=== PATIENT | male | born 1945 | race Two or more races ===

== ENCOUNTER → 2022-06-19 | Outpatient (CLI) | payer OTHER ==
[2022-06-19 08:10] LABS: Basophils # (auto) 0.1 10 ^3/uL (0-0.2); Basophils % (auto) 0.8 % (0.0-2.0); Eosinophils # (auto) 0.4 10 ^3/uL (0-0.8); Eosinophils % (auto) 5.9 % (0.0-7.0); Hematocrit 46.3 % (41.0-53.0); Hemoglobin 15.8 g/dL (13.5-17.5); Lymphocytes # (auto) 1.9 10 ^3/uL (0.4-5.4); Lymphocytes % (auto) 29.1 % (10.0-50.0); Mean Corpuscular Hemoglobin 32.2 pg (28.0-32.0); Mean Corpuscular Hgb Conc. 34.1 g/dL (32.0-36.0); Mean Corpuscular Volume 94.5 fL (80.0-100.0); Monocytes # (auto) 0.5 10 ^3/uL (0-1.3); Monocytes % (auto) 8.1 % (0.0-12.0); Neutrophils # (auto) 3.7 10 ^3/uL (1.6-8.6); Neutrophils % (auto) 56.1 % (37.0-80.0); Nucleated Red Blood Cells % 0.1 %; White Blood Cell 6.5 10^3/uL (4.4-10.8)
[2022-06-19 08:21] LABS: Urine Bacteria NONE SEEN /hpf (None Seen); Urine Blood Negative /uL (Negative); Urine Specific Gravity 1.022 (1.001-1.035); Urine WBC 1 /hpf (0 - 3)
[2022-06-19 08:53] LABS: Albumin 3.9 g/dL (3.4-5.0); Calcium 8.8 mg/dL (8.5-10.1); Magnesium 2.4 mg/dL (1.6-2.6); Potassium 4.5 mmol/L (3.5-5.1)
[2022-06-19 09:05] LABS: BUN/Creatinine Ratio 17.2 (10.0-20.0); Bilirubin, Total 0.8 mg/dL (0.2-1.0); Total Protein 7.3 g/dL (6.4-8.2); Uric Acid 5.7 mg/dL (3.5-7.2)
== END | disposition home or self-care (01) ==
LOC: LAB 07:51
PROVIDERS: ATTEND Internal Medicine
DX: R79.89 Other specified abnormal findings of blood chemistry (principal); E78.41 Elevated Lipoprotein(a); R68.89 Other general symptoms and signs; R73.09 Other abnormal glucose; E61.2 Magnesium deficiency; R94.6 Abnormal results of thyroid function studies; R82.991 Hypocitraturia; E55.9 Vitamin D deficiency, unspecified; R82.79 Other abnormal findings on microbiological examination of urine; D51.9 Vitamin B12 deficiency anemia, unspecified; R82.90 Unspecified abnormal findings in urine
CPT/HCPCS: 36415; 80053; 80061; 81001; 82306; 82607; 83036; 83735; 84443; 84550; 85025; 87086

== ENCOUNTER → 2022-10-09 | Outpatient (CLI) | payer OTHER ==
[2022-10-09 09:33] LABS: Urine Bacteria NONE SEEN /hpf (None Seen); Urine Blood Negative /uL (Negative); Urine Clarity Clear (Clear); Urine Color Yellow (Yellow); Urine Protein, UAD Negative (Negative); Urine Specific Gravity 1.022 (1.001-1.035); Urine Urobilinogen Normal (Negative); Urine WBC <1 /hpf (0 - 3)
[2022-10-09 09:38] LABS: Basophils # (auto) 0 10 ^3/uL (0-0.2); Basophils % (auto) 0.7 % (0.0-2.0); Eosinophils # (auto) 0.4 10 ^3/uL (0-0.8); Hematocrit 46.4 % (41.0-53.0); Hemoglobin 15.5 g/dL (13.5-17.5); Lymphocytes # (auto) 1.5 10 ^3/uL (0.4-5.4); Lymphocytes % (auto) 28.9 % (10.0-50.0); Mean Corpuscular Hemoglobin 31.6 pg (28.0-32.0); Mean Corpuscular Hgb Conc. 33.3 g/dL (32.0-36.0); Mean Corpuscular Volume 94.9 fL (80.0-100.0); Monocytes # (auto) 0.5 10 ^3/uL (0-1.3); Monocytes % (auto) 9.3 % (0.0-12.0); Neutrophils # (auto) 2.8 10 ^3/uL (1.6-8.6); Neutrophils % (auto) 53.1 % (37.0-80.0); Nucleated Red Blood Cells % 0.3 %; Red Blood Cells 4.89 10^6/uL (4.5-5.90); Red Cell Distribution Width 13.2 % (11.8-14.3); White Blood Cell 5.4 10^3/uL (4.4-10.8)
[2022-10-09 10:06] LABS: Alanine Aminotransferase 21 U/L (7-40); Albumin 4.4 g/dL (3.2-4.8); Alkaline Phosphatase 74 U/L (46-116); Anion Gap 4.9 (5-15); Aspartate Aminotransferase 12 U/L (13-40); BUN/Creatinine Ratio 19.4 (10.0-20.0); Blood Urea Nitrogen 21 mg/dL (9-23); Calcium 9.3 mg/dL (8.5-10.1); Carbon Dioxide 29.1 mmol/L (20-30); Chloride 109 mmol/L (98-107); Cholesterol 172 mg/dL (< 200); Glucose 98 mg/dL (74-106); HDL Cholesterol 48 mg/dL (40-59); LDL Cholesterol 113 mg/dL (< 100); Magnesium 2.1 mg/dL (1.6-2.6); Potassium 4.8 mmol/L (3.5-5.1); Sodium 143 mmol/L (136-145); Triglycerides 121 mg/dL (< 150)
[2022-10-09 10:07] LABS: Total Protein 6.9 g/dL (5.7-8.2)
[2022-10-09 10:10] LABS: Folate (Folic Acid) 15.92 ng/mL (>5.38)
[2022-10-09 11:39] LABS: Uric Acid 6.3 mg/dL (3.7-9.2)
== END | disposition home or self-care (01) ==
LOC: LAB 08:50
PROVIDERS: ATTEND Internal Medicine
DX: E61.2 Magnesium deficiency (principal); D51.9 Vitamin B12 deficiency anemia, unspecified; R94.6 Abnormal results of thyroid function studies; E55.9 Vitamin D deficiency, unspecified; R82.90 Unspecified abnormal findings in urine; R68.89 Other general symptoms and signs; R73.09 Other abnormal glucose; E78.41 Elevated Lipoprotein(a)
CPT/HCPCS: 36415; 80053; 80061; 81001; 82306; 82607; 82746; 83036; 83735; 84443; 84550; 85025; 87086

== ENCOUNTER → 2023-01-02 | Outpatient (CLI) | payer OTHER ==
[2023-01-02 09:23] LABS: Urine WBC None Seen /hpf (0 - 3)
[2023-01-02 09:34] LABS: Basophils # (auto) 0 10 ^3/uL (0-0.2); Basophils % (auto) 0.5 % (0.0-2.0); Eosinophils # (auto) 0.4 10 ^3/uL (0-0.8); Eosinophils % (auto) 7.4 % (0.0-7.0); Hematocrit 47.3 % (41.0-53.0); Hemoglobin 15.9 g/dL (13.5-17.5); Lymphocytes # (auto) 1.6 10 ^3/uL (0.4-5.4); Lymphocytes % (auto) 27.4 % (10.0-50.0); Mean Corpuscular Hemoglobin 31.8 pg (28.0-32.0); Mean Corpuscular Hgb Conc. 33.7 g/dL (32.0-36.0); Mean Corpuscular Volume 94.4 fL (80.0-100.0); Monocytes # (auto) 0.4 10 ^3/uL (0-1.3); Neutrophils # (auto) 3.4 10 ^3/uL (1.6-8.6); Neutrophils % (auto) 57.7 % (37.0-80.0); Nucleated Red Blood Cells % 0.1 %; Red Blood Cells 5.01 10^6/uL (4.5-5.90); Red Cell Distribution Width 12.8 % (11.8-14.3); White Blood Cell 5.8 10^3/uL (4.4-10.8)
[2023-01-02 09:39] LABS: Urine Bacteria NONE SEEN /hpf (None Seen); Urine Blood Negative /uL (Negative); Urine Clarity Clear (Clear); Urine Color Yellow (Yellow); Urine Protein, UAD Negative (Negative); Urine Specific Gravity 1.014 (1.001-1.035); Urine Urobilinogen Normal (Negative); Urine pH 6.5 (5.0-8.0)
[2023-01-02 10:14] LABS: Alanine Aminotransferase 18 U/L (7-40); Albumin 4.5 g/dL (3.2-4.8); Alkaline Phosphatase 70 U/L (46-116); Anion Gap 4 (5-15); Aspartate Aminotransferase 21 U/L (13-40); BUN/Creatinine Ratio 9.8 (10.0-20.0); Blood Urea Nitrogen 12 mg/dL (9-23); Calcium 9.1 mg/dL (8.5-10.1); Carbon Dioxide 29 mmol/L (20-30); Chloride 107 mmol/L (98-107); Cholesterol 145 mg/dL (< 200); Glucose 92 mg/dL (74-106); HDL Cholesterol 43 mg/dL (40-59); LDL Cholesterol 88 mg/dL (< 100); Potassium 4.4 mmol/L (3.5-5.1); Sodium 140 mmol/L (136-145); Total Protein 7.1 g/dL (5.7-8.2); Triglycerides 118 mg/dL (< 150)
[2023-01-02 10:37] LABS: Folate (Folic Acid) 20.07 ng/mL (>5.38)
[2023-01-02 10:50] LABS: Uric Acid 6.3 mg/dL (3.7-9.2)
[2023-01-02 10:51] LABS: Magnesium 2.1 mg/dL (1.6-2.6)
== END | disposition home or self-care (01) ==
LOC: LAB 09:08
PROVIDERS: ATTEND Internal Medicine
DX: E61.2 Magnesium deficiency (principal); E79.0 Hyperuricemia without signs of inflammatory arthritis and tophaceous disease; R94.6 Abnormal results of thyroid function studies; R82.998 Other abnormal findings in urine; E55.9 Vitamin D deficiency, unspecified; R82.79 Other abnormal findings on microbiological examination of urine; D51.9 Vitamin B12 deficiency anemia, unspecified; E78.49 Other hyperlipidemia; R68.89 Other general symptoms and signs; R73.09 Other abnormal glucose
CPT/HCPCS: 36415; 80053; 80061; 81001; 82306; 82607; 82746; 83036; 83735; 84443; 84550; 85025; 87086

== ENCOUNTER → 2023-04-14 | Outpatient (CLI) | payer OTHER ==
[2023-04-14 09:26] LABS: Basophils # (auto) 0.1 10 ^3/uL (0-0.2); Eosinophils # (auto) 0.5 10 ^3/uL (0-0.8); Eosinophils % (auto) 7.3 % (0.0-7.0); Hematocrit 46.6 % (41.0-53.0); Hemoglobin 15.4 g/dL (13.5-17.5); Lymphocytes # (auto) 2.2 10 ^3/uL (0.4-5.4); Lymphocytes % (auto) 32.5 % (10.0-50.0); Mean Corpuscular Hemoglobin 31.2 pg (28.0-32.0); Mean Corpuscular Hgb Conc. 33.2 g/dL (32.0-36.0); Mean Corpuscular Volume 94.2 fL (80.0-100.0); Monocytes # (auto) 0.6 10 ^3/uL (0-1.3); Monocytes % (auto) 8.7 % (0.0-12.0); Neutrophils # (auto) 3.4 10 ^3/uL (1.6-8.6); Neutrophils % (auto) 50.5 % (37.0-80.0); Nucleated Red Blood Cells % 0.1 %; Red Blood Cells 4.95 10^6/uL (4.5-5.90); Red Cell Distribution Width 13.2 % (11.8-14.3); White Blood Cell 6.8 10^3/uL (4.4-10.8)
[2023-04-14 09:44] LABS: Urine Bacteria FEW /hpf (None Seen); Urine Blood Negative /uL (Negative); Urine Clarity Clear (Clear); Urine Color Yellow (Yellow); Urine Protein, UAD Negative (Negative); Urine Specific Gravity 1.018 (1.001-1.035); Urine Urobilinogen Normal (Negative); Urine WBC <1 /hpf (0 - 3)
[2023-04-14 10:09] LABS: Alanine Aminotransferase 13 U/L (7-40); Albumin 4.3 g/dL (3.2-4.8); Alkaline Phosphatase 73 U/L (46-116); Anion Gap 4 (5-15); Aspartate Aminotransferase 18 U/L (13-40); BUN/Creatinine Ratio 12.2 (10.0-20.0); Blood Urea Nitrogen 14 mg/dL (9-23); Calcium 9.4 mg/dL (8.5-10.1); Carbon Dioxide 29 mmol/L (20-30); Chloride 108 mmol/L (98-107); Cholesterol 191 mg/dL (< 200); Glucose 88 mg/dL (74-106); HDL Cholesterol 41 mg/dL (40-59); LDL Cholesterol 138 mg/dL (< 100); Potassium 4.3 mmol/L (3.5-5.1); Sodium 141 mmol/L (136-145); Triglycerides 132 mg/dL (< 150)
[2023-04-14 10:17] LABS: Folate (Folic Acid) 19.45 ng/mL (>5.38)
[2023-04-14 10:45] LABS: Uric Acid 6.3 mg/dL (3.7-9.2)
[2023-04-14 10:46] LABS: Magnesium 2.1 mg/dL (1.6-2.6)
== END | disposition home or self-care (01) ==
LOC: LAB 08:59
PROVIDERS: ATTEND Internal Medicine
DX: E55.9 Vitamin D deficiency, unspecified (principal); D51.9 Vitamin B12 deficiency anemia, unspecified; R82.90 Unspecified abnormal findings in urine; R79.89 Other specified abnormal findings of blood chemistry; R68.89 Other general symptoms and signs; R73.09 Other abnormal glucose; E61.2 Magnesium deficiency; R94.6 Abnormal results of thyroid function studies
CPT/HCPCS: 36415; 80053; 80061; 81001; 82306; 82607; 82746; 83036; 83735; 84443; 84550; 85025; 87086

== ENCOUNTER → 2023-07-08 | Day surgery (SDC) | payer OTHER ==
[2023-07-02 10:00] LABS: Basophils # (auto) 0 10 ^3/uL (0-0.2); Basophils % (auto) 0.6 % (0.0-2.0); Eosinophils # (auto) 0.3 10 ^3/uL (0-0.8); Eosinophils % (auto) 5.2 % (0.0-7.0); Hematocrit 46.5 % (41.0-53.0); Hemoglobin 15.5 g/dL (13.5-17.5); Lymphocytes # (auto) 1.9 10 ^3/uL (0.4-5.4); Lymphocytes % (auto) 31.2 % (10.0-50.0); Mean Corpuscular Hemoglobin 31.5 pg (28.0-32.0); Mean Corpuscular Hgb Conc. 33.3 g/dL (32.0-36.0); Mean Corpuscular Volume 94.8 fL (80.0-100.0); Monocytes # (auto) 0.5 10 ^3/uL (0-1.3); Monocytes % (auto) 8.8 % (0.0-12.0); Neutrophils # (auto) 3.3 10 ^3/uL (1.6-8.6); Neutrophils % (auto) 54.2 % (37.0-80.0); Nucleated Red Blood Cells % 0.1 %; Red Blood Cells 4.91 10^6/uL (4.5-5.90); Red Cell Distribution Width 12.8 % (11.8-14.3); White Blood Cell 6.1 10^3/uL (4.4-10.8)
[2023-07-02 10:18] LABS: INR 1.02 (0.9-1.15); Partial Thromboplastin Time 28.1 SEC (24.5-34.5); Prothrombin Time 10.8 sec (9.3-11.8)
[2023-07-02 10:28] LABS: Alanine Aminotransferase 22 U/L (7-40); Albumin 4.6 g/dL (3.2-4.8); Alkaline Phosphatase 76 U/L (46-116); Anion Gap 3 (5-15); Aspartate Aminotransferase 17 U/L (13-40); BUN/Creatinine Ratio 14.5 (10.0-20.0); Blood Urea Nitrogen 17 mg/dL (9-23); Calcium 9.8 mg/dL (8.5-10.1); Carbon Dioxide 30 mmol/L (20-30); Chloride 107 mmol/L (98-107); Glucose 91 mg/dL (74-106); Potassium 4.5 mmol/L (3.5-5.1); Sodium 140 mmol/L (136-145); Total Protein 7.2 g/dL (5.7-8.2)
[~2023-07-08] VITALS: Ht 172.7 cm; Wt 88.5 kg
[~2023-07-08] MED LIST: ATOR10TA52 PO; FLUMAZENIL 0.1 MG/ML INJ 10ML MDV IV ONE; NALOXONE HCL 0.4 MG/ML VIAL ONE; PANT40TA2 PO; SODIUM CHLORIDE LOCK 10 ML ONE; SUCR1TAB31 OR; TAMS0.4C36 PO
[2023-07-08 10:25] VITALS: PULSE 65; RESP 16; O2SAT 97
[2023-07-08] MEDS: LIDOCAINE VISCOUS 2% 15ML UD ONE (10:26)
[2023-07-08] MEDS: diphenhdrAMINE HCL 50 MG/1 ML VL ONE (10:31)
[2023-07-08] MEDS: fentaNYL CITRATE 100 MCG/2 ML VL ONE (10:31)
[2023-07-08] MEDS: MIDAZOLAM HCL 5 MG/ML-1ML VIAL ONE (10:31)
[2023-07-08 10:43] VITALS: RESP 16; TEMP 97.5; O2SAT 94
[2023-07-08 11:07] VITALS: BP 115/69; PULSE 59; RESP 16; O2SAT 94
== END | disposition home or self-care (01) ==
LOC: GI 09:09
PROVIDERS: ATTEND Internal Medicine Gastroenterology
DX: K21.00 Gastro-esophageal reflux disease with esophagitis, without bleeding (principal); K44.9 Diaphragmatic hernia without obstruction or gangrene; K29.50 Unspecified chronic gastritis without bleeding; K29.80 Duodenitis without bleeding; M19.90 Unspecified osteoarthritis, unspecified site; Z79.899 Other long term (current) drug therapy; Z98.890 Other specified postprocedural states; Z98.41 Cataract extraction status, right eye; Z98.42 Cataract extraction status, left eye
CPT/HCPCS: 36415; 43239; 80053; 85025; 85610; 85730; 88305; 88312; 88342; J1200; J2250; J3010; J7030

== ENCOUNTER → 2023-08-14 | Outpatient (CLI) | payer OTHER ==
[~2023-08-14] MED LIST changes: -FLUMAZENIL 0.1 MG/ML INJ 10ML MDV IV ONE; -NALOXONE HCL 0.4 MG/ML VIAL ONE; -SODIUM CHLORIDE LOCK 10 ML ONE
[2023-08-14 07:50] LABS: Urine Bacteria None Seen /hpf (None Seen)
[2023-08-14 08:09] LABS: Basophils # (auto) 0 10 ^3/uL (0-0.2); Basophils % (auto) 0.6 % (0.0-2.0); Eosinophils # (auto) 0.4 10 ^3/uL (0-0.8); Eosinophils % (auto) 6.7 % (0.0-7.0); Hematocrit 44.5 % (41.0-53.0); Hemoglobin 15.1 g/dL (13.5-17.5); Lymphocytes # (auto) 1.8 10 ^3/uL (0.4-5.4); Lymphocytes % (auto) 29.7 % (10.0-50.0); Mean Corpuscular Hemoglobin 31.7 pg (28.0-32.0); Mean Corpuscular Hgb Conc. 33.8 g/dL (32.0-36.0); Mean Corpuscular Volume 93.7 fL (80.0-100.0); Monocytes # (auto) 0.5 10 ^3/uL (0-1.3); Monocytes % (auto) 7.8 % (0.0-12.0); Neutrophils # (auto) 3.3 10 ^3/uL (1.6-8.6); Neutrophils % (auto) 55.2 % (37.0-80.0); Nucleated Red Blood Cells % 0.1 %; Red Blood Cells 4.75 10^6/uL (4.5-5.90); Red Cell Distribution Width 13.2 % (11.8-14.3); Urine Blood Negative /uL (Negative); Urine Clarity Clear (Clear); Urine Color Light-Yellow (Yellow); Urine Protein, UAD Negative (Negative); Urine Urobilinogen Normal (Negative); Urine WBC <1 /hpf (0 - 3); White Blood Cell 6.1 10^3/uL (4.4-10.8)
[2023-08-14 08:21] LABS: Alanine Aminotransferase 29 U/L (7-40); Albumin 4.2 g/dL (3.2-4.8); Alkaline Phosphatase 71 U/L (46-116); Anion Gap 4 (5-15); Aspartate Aminotransferase 19 U/L (13-40); Blood Urea Nitrogen 14 mg/dL (9-23); Calcium 9.4 mg/dL (8.5-10.1); Carbon Dioxide 28 mmol/L (20-30); Chloride 109 mmol/L (98-107); Glucose 101 mg/dL (74-106); LDL Cholesterol 95 mg/dL (< 100); Magnesium 1.9 mg/dL (1.6-2.6); Potassium 4.6 mmol/L (3.5-5.1); Sodium 141 mmol/L (136-145); Triglycerides 133 mg/dL (< 150)
[2023-08-14 08:22] LABS: Cholesterol 154 mg/dL (< 200); HDL Cholesterol 47 mg/dL (40-59); Total Protein 6.5 g/dL (5.7-8.2)
[2023-08-14 09:15] LABS: Folate (Folic Acid) 19.43 ng/mL (>5.38)
[2023-08-14 11:00] LABS: Uric Acid 5.6 mg/dL (3.7-9.2)
== END | disposition home or self-care (01) ==
LOC: LAB 07:40
PROVIDERS: ATTEND Internal Medicine
DX: E79.0 Hyperuricemia without signs of inflammatory arthritis and tophaceous disease (principal); E55.9 Vitamin D deficiency, unspecified; R82.79 Other abnormal findings on microbiological examination of urine; R82.90 Unspecified abnormal findings in urine; Z68.30 Body mass index [BMI] 30.0-30.9, adult; R73.03 Prediabetes; D51.9 Vitamin B12 deficiency anemia, unspecified; R94.6 Abnormal results of thyroid function studies; E78.5 Hyperlipidemia, unspecified; R68.89 Other general symptoms and signs; R73.09 Other abnormal glucose; E78.49 Other hyperlipidemia; E61.2 Magnesium deficiency
CPT/HCPCS: 36415; 80053; 80061; 81001; 82306; 82607; 82746; 83036; 83735; 84443; 84550; 85025; 87086

== ENCOUNTER → 2023-11-17 | Outpatient (CLI) | payer OTHER ==
[~2023-11-17] MED LIST changes: -TAMS0.4C36 PO; +TAMS0.4C39 PO
[2023-11-17 08:21] LABS: Urine Bacteria None Seen /hpf (None Seen)
[2023-11-17 08:58] LABS: Urine Blood Negative /uL (Negative); Urine Clarity Clear (Clear); Urine Color Light-Yellow (Yellow); Urine Mucus FEW (None Seen); Urine Protein, UAD Negative (Negative); Urine Specific Gravity 1.017 (1.001-1.035); Urine Urobilinogen Normal (Negative); Urine WBC 1 /hpf (0 - 3); Urine pH 5.5 (5.0-9.0)
[2023-11-17 09:02] LABS: Basophils # (auto) 0 10 ^3/uL (0-0.2); Basophils % (auto) 0.6 % (0.0-2.0); Eosinophils # (auto) 0.4 10 ^3/uL (0-0.8); Eosinophils % (auto) 5.5 % (0.0-7.0); Hematocrit 46.8 % (41.0-53.0); Hemoglobin 15.9 g/dL (13.5-17.5); Lymphocytes # (auto) 1.9 10 ^3/uL (0.4-5.4); Lymphocytes % (auto) 28.1 % (10.0-50.0); Mean Corpuscular Hemoglobin 32.6 pg (28.0-32.0); Mean Corpuscular Volume 95.9 fL (80.0-100.0); Monocytes # (auto) 0.5 10 ^3/uL (0-1.3); Neutrophils # (auto) 3.9 10 ^3/uL (1.6-8.6); Neutrophils % (auto) 57.8 % (37.0-80.0); Nucleated Red Blood Cells % 0.1 %; Platelet Count (auto) 219 10^3/uL (140-450); Red Blood Cells 4.88 10^6/uL (4.5-5.90); Red Cell Distribution Width 13.6 % (11.8-14.3); White Blood Cell 6.8 10^3/uL (4.4-10.8)
[2023-11-17 09:14] LABS: Alanine Aminotransferase 12 U/L (7-40); Albumin 4.5 g/dL (3.2-4.8); Alkaline Phosphatase 76 U/L (46-116); Anion Gap 6 (5-15); Aspartate Aminotransferase 14 U/L (13-40); BUN/Creatinine Ratio 13.1 (10.0-20.0); Blood Urea Nitrogen 16 mg/dL (9-23); Calcium 9.5 mg/dL (8.7-10.4); Carbon Dioxide 27 mmol/L (20-31); Chloride 108 mmol/L (98-107); Cholesterol 181 mg/dL (< 200); Glucose 89 mg/dL (74-106); HDL Cholesterol 47 mg/dL (40-59); LDL Cholesterol 117 mg/dL (< 100); Magnesium 2.2 mg/dL (1.6-2.6); Potassium 4.5 mmol/L (3.5-5.1); Sodium 141 mmol/L (136-145); Triglycerides 139 mg/dL (< 150)
[2023-11-17 09:15] LABS: Bilirubin, Total 0.9 mg/dL (0.2-1.0)
[2023-11-17 09:32] LABS: Uric Acid 5.9 mg/dL (3.7-9.2)
[2023-11-17 11:25] LABS: Folate (Folic Acid) 18.02 ng/mL (>5.38)
== END | disposition home or self-care (01) ==
LOC: LAB 07:55
PROVIDERS: ATTEND Internal Medicine
DX: E78.5 Hyperlipidemia, unspecified (principal); Z68.30 Body mass index [BMI] 30.0-30.9, adult
CPT/HCPCS: 36415; 80053; 80061; 81001; 82306; 82607; 82746; 83036; 83735; 84443; 84550; 85025; 87086

== ENCOUNTER → 2024-02-12 | Outpatient (CLI) | payer OTHER ==
[2024-02-12 09:19] LABS: Alanine Aminotransferase 28 U/L (7-40); Albumin 4.4 g/dL (3.2-4.8); Alkaline Phosphatase 86 U/L (46-116); Anion Gap 6 (5-15); Aspartate Aminotransferase 24 U/L (13-40); BUN/Creatinine Ratio 13.2 (10.0-20.0); Bilirubin, Total 0.6 mg/dL (0.2-1.0); Blood Urea Nitrogen 15 mg/dL (9-23); Calcium 10.2 mg/dL (8.7-10.4); Carbon Dioxide 29 mmol/L (20-31); Chloride 105 mmol/L (98-107); Cholesterol 162 mg/dL (< 200); Glucose 88 mg/dL (74-106); HDL Cholesterol 49 mg/dL (40-59); LDL Cholesterol 97 mg/dL (< 100); Potassium 4.3 mmol/L (3.5-5.1); Sodium 140 mmol/L (136-145)
[2024-02-12 09:21] LABS: Triglycerides 175 mg/dL (< 150)
== END | disposition home or self-care (01) ==
LOC: LAB 08:04
PROVIDERS: ATTEND Internal Medicine
DX: N40.0 Benign prostatic hyperplasia without lower urinary tract symptoms (principal); K27.9 Peptic ulcer, site unspecified, unspecified as acute or chronic, without hemorrhage or perforation; E61.2 Magnesium deficiency; E55.9 Vitamin D deficiency, unspecified; E79.0 Hyperuricemia without signs of inflammatory arthritis and tophaceous disease; R51.9 Headache, unspecified; E78.5 Hyperlipidemia, unspecified; R94.6 Abnormal results of thyroid function studies; R73.09 Other abnormal glucose; R82.90 Unspecified abnormal findings in urine
CPT/HCPCS: 36415; 80053; 80061; 82306; 87086

== ENCOUNTER → 2024-04-20 | Outpatient (CLI) | payer OTHER ==
[2024-04-21 08:07] LABS: PSA Free 1.25 ng/mL; Prostate Specific Antigen 4.9 ng/mL (0.0-4.0)
== END | disposition home or self-care (01) ==
LOC: LAB 10:28
PROVIDERS: ATTEND Urology
DX: N40.0 Benign prostatic hyperplasia without lower urinary tract symptoms (principal)
CPT/HCPCS: 84153; 84154

== ENCOUNTER 2024-07-21 07:39 | Outpatient (CLI) | payer OTHER ==
[~2024-07-21] VITALS: Ht 172.7 cm; Wt 89.4 kg
--- NOTE | 2024-07-21 10:11 | DVHCARD ---
Cardiology Stress Test [place] Treadmill Stress Test [place] Referring MD: MD Michael Protocol: Mod. naima (with cardiolite) Reason for referral: Other (Procedural cardiovascular examination ) Target heart Rate:@85%: 118 Percent MPHR: 139 METS: 7.0 Resting Heart rate: 54 Resting Blood Pressure: 118/68 Exercise Heart Rate: 126 Exercise Blood Pressure: 154/24 Baseline EKG: Sinus bradycardia with PACs Stress EKG: Sinus tachycardia Functional Capacity: Good Normal Heart Rate Response: Adequate Blood Pressure Response: Hypertensive Clinical response: Non-ischemic Arrhythmia?: No (Excessive artifact throughout exam) Cardiolite Injected?: Yes ST-T Changes: Non/Minimal Probability of Inducible Ische: Perfusion result pending Date of Service: Jul 21, 2024 Billing Provider: [facility] Common Codes: PROCEDURE ONLY Treadmill W/Cardiolite Nuclear: [id number], INTERP, RPT [facility] Jul 21, 2024 10:11
--- NOTE | 2024-07-21 12:55 | DVHSR ---
APPROVED REPORT Exam: Nuclear Stress Test Indication: CARDIAC CLEARANCE BMI: 0 Medical History Medical History: PROSTATE CA, HTN Allergies: No known drug allergies Stress Test Details Stress Test: Exercise stress testing was performed using a modified Harshal protocol. HR Resting HR: 54 bpmMax Heart Rate (APMHR): 139.457962 bpm Max HR Achieved: 126 bpmTarget HR (85% APMHR): 118.327849 bpm % of APMHR: 90.65 Recovery HR: 83 bpm BP Resting BP: 118/68 mmHg Recovery BP: 138/79 mmHg ECG Resting ECG: Sinus Rhythm Clinical Reason for Termination: Completed protocol Exercise duration: 12 min 00 sec Exercise capacity: 7.0 METs Stress ECG Conclusion lvef 60% no severe ischemia noted GI artifact inferior wall noted NM EXAM: Myocardial Perfusion REST/STRESS Imaging Protocol: Rest Tc-99m/Stress Tc-99m 1 day Resting Data Rest SPECT myocardial perfusion imaging was performed in supine position 45 minutes following the int ravenous injection of 10.5 mCi of Tc-99m Sestamibi. Time of rest injection: 08:15 Date: 07/21/2024 Time of rest imagin:00 Date: 07/21/2024 Administration Route: IV Administration Site: Left Hand Exercise Stress At peak stress, the patient was injected intravenously with 33.0mCi of Tc-99m Sestamibi. Time of stress injection: 09:53 Date: 07/21/2024 Time of stress imagin:27 Administration Route: IV Administration Site: Left Arm Heart Rate at time of stress injection: 108 bpm. Patient continued to exercise for 2 minute(s). Gated Stress SPECT was performed 34 minutes after stress injection. The images were gated to evaluate regional wall motion and calculate left ventricular ejection fracti on. Stress only was performed in the Supine position. Nuclear Conclusion Nuclear Findings: negative for ischemia Exercise Capacity: normal lvef 60% no severe ischemia noted GI artifact inferior wall noted
== END 2024-07-21 17:00 | disposition home or self-care (01) ==
LOC: XYW 07:39
PROVIDERS: ATTEND Internal Medicine
DX: Z01.810 Encounter for preprocedural cardiovascular examination (principal); N47.1 Phimosis; I10 Essential (primary) hypertension; K21.9 Gastro-esophageal reflux disease without esophagitis; R97.20 Elevated prostate specific antigen [PSA]
CPT/HCPCS: 78452; 93017; A9500

== ENCOUNTER 2025-02-08 12:32 | Inpatient (IN) | payer OTHER, MEDICAID ==
[~2025-02-08] VITALS: Ht 172.7 cm; Wt 87.4 kg
--- NOTE | 2025-02-08 13:05 | ED.PDOC ---
HPI (NEURO) HPI Comments HPI: A 79 year old male presents to the emergency department for chief complaint of dizziness onset 8 days ago. Pt reports that he fell and passed out on Friday, laying down unconscious for about 1 minute. Pt reports that when he both stands up and eats meals he feels dizzy but denies any symptoms when exercising. In the ED, Pt also reports that his "head is spinning" and feels intermittent chest palpitations when he consumes caffeine. Pt denies any associate symptoms of fever, chills, body aches, nausea, or diarrhea. Pt notes no other symptoms at this time. Initial Vitals BP: 128/81 HR:67 RR:18 O2 Sat: 98 Temp: 98 F Past Medical history: GERD, enlarged prostate, high cholesterol. Past Surgical history: denies. Medications: atorvastatin, omeprazole Social History: Denies smoking, ETOH, and drug use. Allergies: NKDA HPI: Poor Historian. RIVER: DIZZY NORMAL REVIEW OF SYSTEMS: CONSTITUTIONAL: Denies acute: fever, diaphoresis, chills, generalized weakness. HEAD: Denies acute: headache, photophobia Eyes: Denies acute: Double vision, vision loss, eye pain, eye discharge. EARS: Denies acute: tinnitus, hearing loss, ear discharge, ear pain, THROAT: Denies acute: sore throat, swelling, difficulty swallowing , pain with swallowing, change in voice. NECK: Denies acute: neck pain, neck swelling, stiff neck. HEART: Denies acute : chest pain, LUNGS: Denies acute: SOB, wheezing, cough, hemoptysis ABDOMEN: Denies acute: abdominal pain, Nausea, Vomiting, diarrhea, melena , hematemesis, hematochezia SKIN: Denies acute: rash, redness, lesions, itchiness. EXTREMITIES: Denies acute: calf pain, numbness, tingling, weakness, denies pain in extremity. Denies acute: Low back pain. Neuro: Denies acute: focal neurological deficit, motor or sensory focal neurological deficit, tremors, seizure like activity, confusion, change in mental status, loss of bowel or bladder function, cauda equina like symptoms. : Denies acute: dysuria, hematuria, flank pain, increase in urinary frequency. PSYCH: Denies acute: hallucination, suicidal ideation, homicidal ideation. PHYSICAL EXAM: General: ----no---acute distress, awake and alert. Head: normocephalic, atraumatic. No raccoon's eyes, no lucio sign. Neck: supple, trachea is midline, no swelling. Throat: Normal phonation. Eyes:, no erythema, no purulent discharge, no proptosis, no icterus. Heart: regular rate, regular rhythm, no significant murmur appreciated. Lungs: no apparent respiratory distress, Able to speak in full sentences. No wheezing, no rhonchi, no crackles. No stridors Clear to auscultation bilaterally. Abdomen: non tender to palpation, non distended, soft, no guarding, no rebound, + bowel sounds. Neuro: Awake, Alert, oriented to name, self, situation, follows commands GCS=15. Speech is normal. Skin: no petechia, no purpura, no cyanosis, non-pale, not jaundice. Lower extremities: --no - Pitting edema no deformity, no focal swelling, no calf TTP. Makes eye contact. moves all four extremities. Face: no apparent facial droop. Ambulating in the ED independently. ED COURSE: DISCLAIMER: This medical document was created using an electronic medical record system with voice recognition software and computerized dictation system. Although this document has been carefully reviewed, there might still be some phonetic and typographical errors. Occasional wrong-word or "sound-alike" substitutions may have occurred due to the inherent limitations of voice recognition software. These areas are purely typographical due to imperfections of the software programs and do not reflect any compromise in the patient's medical care. Please read the chart carefully and recognize, using context, where these substitutions have occurred. Chief Complaint: Dizziness Time Seen by MD: 12:56 Reviewed Notes: Nurses Notes, Medications, Allergies Information Source: Patient Mode of Arrival: Ambulatory Timing: Days Duration: Since onset Headache Location: Generalized Onset: Other (When standing up) Was a procedure done? Was a procedure done?: No X-Ray, Labs, Meds, VS Vital Signs Date Time Temp Pulse Resp B/P (MAP) Pulse Ox O2 Delivery O2 Flow Rate FiO2 02/08/25 12:47 67 02/08/25 12:36 98.0 77 18 128/81 98 98.0 Lab Test 02/08/25 13:14 Range/Units White Blood Count Pending Red Blood Count Pending Hemoglobin Pending Hematocrit Pending Mean Corpuscular Volume Pending Mean Corpuscular Hemoglobin Pending Mean Corpuscular Hemoglobin Concent Pending Red Cell Distribution Width Pending Platelet Count Pending Mean Platelet Volume Pending Neutrophils (%) (Auto) Pending Lymphocytes (%) (Auto) Pending Monocytes (%) (Auto) Pending Basophils (%) (Auto) Pending Neutrophils # (Auto) Pending Lymphocytes # (Auto) Pending Monocytes # (Auto) Pending Sodium Level Pending Potassium Level Pending Chloride Level Pending Carbon Dioxide Level Pending Anion Gap Pending Blood Urea Nitrogen Pending Creatinine Pending Glomerular Filtration Rate Calc Pending BUN/Creatinine Ratio Pending Serum Glucose Pending Calcium Level Pending Total Bilirubin Pending Aspartate Amino Transferase (AST) Pending Alanine Aminotransferase (ALT) Pending Alkaline Phosphatase Pending Troponin I High Sensitivity Pending Total Protein Pending Albumin Pending [place] [id number] Ph: [phone] DIAGNOSTIC IMAGING Diagnostic Imaging Report : [id number] Signed PATIENT: DOMINGO RIVERCCT: [id number] UNIT: [id number] : 1945 LOC: ER ROOM / BED: / AGE / SEX: 79 / M ADM STATUS: REG ER SERVICE 1256 ORDERING PHYSICIAN: REY HUDSON DO PROCEDURE(s): CXRP - CHEST PORTABLE REASON: Syncope and collapse ORDER NUMBER(s): [id number], ACCESSION NUMBER(s): [id number] CHEST RADIOGRAPH INDICATION: Syncope and collapse TECHNIQUE: Single frontal view of the chest was obtained COMPARISON: None FINDINGS: Lines and Tubes: None Lungs: Bibasilar subsegmental atelectasis. Pleura: No effusion. No pneumothorax. Cardiomediastinal contours: Unremarkable Bones: Unremarkable IMPRESSION: Bibasilar subsegmental atelectasis. ATED BY: MATEO GALVEZ MD DICTATED DATE/TIME: 02/08/25 1326 SIGNED BY: MATEO GALVEZ MD SIGNED DATE/TIME: 02/08/25 1326 CC: Time of 1ST Reevaluation: 13:26 Reevaluation 1ST: Unchanged Patient Education/Counseling: Diagnosis, Treatment Family Education/Counseling: Diagnosis, Treatment Departure 1 Departure Time of Disposition: 13:25 Impression: Primary Impression: Syncope and collapse Additional Impression: Dizziness Disposition: ADMITTED INPATIENT Admit to: Tele Condition: Guarded Discharged With: Self I personally scribed for REY HUDSON DO ([email or web address]) on 02/08/25 at 13:05. Elec tronically submitted by Jeanette Yeh ([email or web address]). I personally scribed for REY HUDSON DO ([email or web address]) on 02/08/25 at 13:23. Electronically submitted by Jeanette Yeh ([email or web address]). I personally scribed for REY HUDSON DO ([email or web address]) on 02/08/25 at 13:35. Electronically submitted by Jeanette Yeh ([email or web address]). REY HUDSON DO Feb 08, 2025 13:05
--- NOTE | 2025-02-08 13:29 | DVH ---
CHEST RADIOGRAPH INDICATION: Syncope and collapse TECHNIQUE: Single frontal view of the chest was obtained COMPARISON: None FINDINGS: Lines and Tubes: None Lungs: Bibasilar subsegmental atelectasis. Pleura: No effusion. No pneumothorax. Cardiomediastinal contours: Unremarkable Bones: Unremarkable IMPRESSION: Bibasilar subsegmental atelectasis.
[2025-02-08 13:48] LABS: Hematocrit 46.7 % (41.0-53.0); Hemoglobin 16.0 g/dL (13.5-17.5); Mean Corpuscular Hemoglobin 32.2 pg (28.0-32.0); Mean Corpuscular Volume 93.7 fL (80.0-100.0); Nucleated Red Blood Cells % 0.1 %
[2025-02-08 14:02] LABS: Alanine Aminotransferase 32 U/L (7-40); Alkaline Phosphatase 75 U/L (46-116); Anion Gap 6 (5-15); BUN/Creatinine Ratio 15.3 (10.0-20.0); Blood Urea Nitrogen 17 mg/dL (9-23); Calcium 9.2 mg/dL (8.7-10.4); Carbon Dioxide 29 mmol/L (20-31); Chloride 105 mmol/L (98-107); Glucose 82 mg/dL (74-106); Potassium 4.7 mmol/L (3.5-5.1); Sodium 140 mmol/L (136-145); Total Protein 7.2 g/dL (5.7-8.2)
[2025-02-08 14:03] LABS: Albumin 4.5 g/dL (3.2-4.8); Bilirubin, Total 0.7 mg/dL (0.2-1.0)
[2025-02-08 16:23] LABS: Urine Protein, UAD Negative (Negative)
--- NOTE | 2025-02-08 16:55 | DVH ---
CT HEAD WITHOUT CONTRAST INDICATION: DIZZY EXAM DATE: 02/08/2025 04:08 PM COMPARISON: None TECHNIQUE: CT of the head without intravenous contrast. RADIATION DOSE: CTDIvol: 54 mGy, DLP: 864 mGy*cm FINDINGS: There is no intracranial hemorrhage. There is no extra-axial fluid, mass, mass effect or midline shift. The ventricles are midline and normal in size. Basilar cisterns are patent. Hicks-white differentiation is maintained. There is mild global cerebral volume loss. The paranasal sinuses and mastoids are well-pneumatized. Imaged portion of the orbits are unremarkable. IMPRESSION: No intracranial hemorrhage or mass effect. Mild global cerebral volume loss.
[2025-02-08 18:43] VITALS: PULSE 72; RESP 18; O2SAT 98
[2025-02-09 02:53] VITALS: BP 111/71; PULSE 69; RESP 16; TEMP 98.1; O2SAT 94
[2025-02-09 05:00] VITALS: BP 109/67; PULSE 67; RESP 16; TEMP 98.2; O2SAT 95
[2025-02-09 05:33] LABS: Hematocrit 47.8 % (41.0-53.0); Hemoglobin 16.0 g/dL (13.5-17.5); Mean Corpuscular Hemoglobin 31.2 pg (28.0-32.0); Mean Corpuscular Volume 93.1 fL (80.0-100.0); Nucleated Red Blood Cells % 0.1 %
--- NOTE | 2025-02-09 05:45 | DVHHPRES ---
History of Present Illness Resident Creating Document: REGGIE BARON RESIDENT History of Present Illness Adarsh Reinoso is an 79-year-old male with past medical history of gastritis, BPH, dyslipidemia presented to the hospital after a syncopal episode on Friday. He reports that he lost consciousness. Patient was at [employer] when he fell softly to the cement floor. He did not hit his head. He states that he did not have any prodromal symptoms. He reports of "getting dizzy when he has gastritis". He complains of associated occipital headache. Pt denies any associate symptoms of fever, chills, body aches, nausea, or diarrhea. PMHx: Gastritis, BPH, dyslipidemia PSHx: none Family history: coronary artery disease in father, prostate cancer Social history: denies smoking, alcohol or illicit drug Home medication: tamsulosin, atorvastatin, omeprazole, sucralfate Allergic history: no known allergy Review of Systems Review of Systems General: patient denies fever, fatigue, weaknes, sweating, any recent changes in appetite and weight HEENT: No headaches, visiual changes, hearing loss, tinnitus, nasal congestion and discharge, and sore throat. Cardiovascular: Denies chest pain, palpitations, dyspnea on exertion, orthopnea, or claudication. Respiratory: No cough, and wheezing. Gastrointestinal: Denies nausea, vomiting, dysphagia, odynophagia, heartburn, abdominal pain, flatulence, bloating, diarrhea, constipation, change in stool, or blood in stool. Genitourinary: No dysuria, hematuria, discharge, frequency, urgency, nocturia, incontinence, and urinary retention. Endocrine: No heat or cold intolerance, polydipsia, polyuria, and polyphagia. Neurological: No dizziness, extremity weakness and numbness, tremors, gait disturbance, seizures, and memory impairment. Psychiatric: Denies depression, anxiety,or insomnia. Musculoskeletal: Denies neck pain, stiffness and swelling, back pain, muscle weakness, joint pain, stiffness, swelling, or limited range of motion. Skin: No rashes, itching, skin lesion, changes in hair, nail, skin texture and breast. Hematologic/Lymphatic: Denies easy bruising, bleeding tendencies, or lymph node enlargement. Medications Current Medications Medications Dose Ordered Sig/Devon Route Start Time Stop Time Status Last Admin Dose Admin Enoxaparin Sodium 40 mg DAILY SC 02/09/25 10:00 UNV Exam Vital Signs Vital Signs Date Time Temp Pulse Resp B/P (MAP) Pulse Ox O2 Delivery O2 Flow Rate FiO2 02/09/25 02:53 98.1 69 16 111/71 (84) 94 98.1 02/08/25 18:43 Room Air* 0 21 Exam General Appearance: Alert, Oriented X3, Cooperative, No acute distress HEENT: Atraumatic, PERRLA, EOMI, Mucous membrane moist/pink Respiratory: Clear to auscultation, Normal air movement Cardiovascular: Regular rate, Normal S1, Normal S2, No murmurs, no chest wall tenderness Abdominal: Normal bowel sounds, Soft, No tenderness, No hepatospenomegaly, No masses Extremities: No clubbing, No cyanosis, No edema, Normal pulses, No tenderness/swelling Skin: No rashes, No breakdown, No significant lesion Neuro: Normal gait, Normal speech, Strength at 5/5 X4 ext, Normal tone, Sensation intact, Cranial nerves 3-12 NL, Reflexes 2+ Psych/Mental Status: Mental status NL, Mood NL Labs/Xrays Labs Test 02/09/25 04:51 02/08/25 16:00 02/08/25 14:06 Range/Units White Blood Count 8.0 4.4-10.8 10^3/uL Red Blood Count 5.14 4.5-5.90 10^6/uL Hemoglobin 16.0 13.5-17.5 g/dL Hematocrit 47.8 41.0-53.0 % Mean Corpuscular Volume 93.1 80.0-100.0 fL Mean Corpuscular Hemoglobin 31.2 28.0-32.0 pg Mean Corpuscular Hemoglobin Concent 33.5 32.0-36.0 g/dL Red Cell Distribution Width 12.8 11.8-14.3 % Platelet Count 223 140-450 10^3/uL Mean Platelet Volume 7.4 6.9-10.8 fL Neutrophils (%) (Auto) 58.9 37.0-80.0 % Lymphocytes (%) (Auto) 26.2 10.0-50.0 % Monocytes (%) (Auto) 8.8 0.0-12.0 % Eosinophils (%) (Auto) 5.7 0.0-7.0 % Basophils (%) (Auto) 0.4 0.0-2.0 % Neutrophils # (Auto) 4.7 1.6-8.6 10 ^3/uL Lymphocytes # (Auto) 2.1 0.4-5.4 10 ^3/uL Monocytes # (Auto) 0.7 0-1.3 10 ^3/uL Eosinophils # (Auto) 0.5 0-0.8 10 ^3/uL Basophils # (Auto) 0 0-0.2 10 ^3/uL Nucleated Red Blood Cells 0.1 % Urine Color Yellow Yellow Urine Clarity Clear Clear Urine pH 5.5 5.0-9.0 Urine Specific [place] 1.018 1.001-1.035 Urine Protein Negative Negative Urine Ketones 1+ H Negative Urine Blood Negative Negative /uL Urine Nitrite Negative Negative Urine Bilirubin Negative Negative Urine Urobilinogen Normal Negative mg/dL Urine Leukocyte Esterase Negative Negative /uL Urine RBC 1 0 - 3 /hpf Urine Microscopic WBC 0-3 /HPF Urine Squamous Epithelial Cells None seen <5 /hpf Urine Bacteria Few H None Seen /hpf Urine Mucus Few None Seen Urine Glucose Normal Normal mg/dL Troponin I High Sensitivity 3 L </=54 ng/L SEPSIS Sepsis Screen Date sepsis recognized/suspect: Feb 08, 2025 Time Sepsis recognized/suspect: 1847 Recent Procedure: No On Antibiotic Therapy: No Respiratory Rate >20: No Heart Rate >90: No Temp<36 C (96.8 F) or >38.3 C: No SBP <90 or MAP <65 mmHG: No New Acute Mental Status Change: No Is the patient on CPAP, BIPAP,: No Physician Orders Admit (02/09/25 00:16) Code Status (02/09/25 00:16) Enoxaparin Sodium (Lovenox) (02/09/25 10:00) Comprehensive Metabolic Panel (02/09/25 04:00) Condition: Fair (02/09/25 00:16) Drug Screen (02/09/25 01:05) Thyroid Stimulating Hormone (02/09/25 01:05) Magnesium (02/09/25 04:00) Atorvastatin (Lipitor) (02/09/25 22:00) Pantoprazole (Protonix) (02/09/25 10:00) Tamsulosin Hydrochloride (Flomax) (02/09/25 18:00) Psa Total+% Free (02/09/25 05:15) Lipid Panel (02/09/25 05:15) Hemoglobin A1c (02/09/25 05:15) Echo 2d Mode Cardiac Dop (02/09/25 05:40) Vital Signs Date Time Temp Pulse Resp B/P (MAP) Pulse Ox O2 Delivery O2 Flow Rate FiO2 02/09/25 02:53 98.1 69 16 111/71 (84) 94 98.1 02/09/25 01:32 97 16 02/09/25 00:57 98.3 97 16 123/81 (95) 94 98.3 Laboratory Tests Test 02/09/25 04:51 White Blood Count 8.0 10^3/uL (4.4-10.8) Assessment/Plan Assessment/Plan Assessment and plan Syncope, possibly cardiogenic Status post mechanical fall Telemetry admit EKG UDS Magnesium TSH Echo Benign prostate hypertrophy Continue tamsulosin Dyslipidemia Continue atorvastatin GERD Protonix IV PUD prophylaxis: protonix 40mg DVT prophylaxis: Levonox 40mg Barriers to discharge: Medical diagnosis and management in progress. Patient lives with family. Independent for ADL. PCP: Dr. Avitia Specialist Relevent To Admission: None Case discussed with Dr. Ball. Code Status: Full Code. Complex patient care discussion needed. Spend total 35 minutes for bedside assessment, case discussion and management. Plan discussed with: Patient My Orders Orders - REGGIE BARON RESIDENT Procedure Category Date Status Time Admit ADMIT 02/09/25 Transmitted 00:16 Code Status CODE 02/09/25 Transmitted 00:16 Enoxaparin Sodium PHA 02/09/25 Logged (Lovenox) 10:00 Comprehensive LAB 02/09/25 In Process Metabolic Panel 04:00 Condition: Fair JENNIFER 02/09/25 In Process 00:16 Drug Screen LAB 02/09/25 Logged 01:05 Thyroid Stimulating LAB 02/09/25 In Process Hormone 01:05 Magnesium LAB 02/09/25 In Process 04:00 Atorvastatin (Lipitor) PHA 02/09/25 Logged 22:00 Pantoprazole PHA 02/09/25 Logged (Protonix) 10:00 Tamsulosin PHA 02/09/25 Logged Hydrochloride (Flomax) 18:00 Psa Total+% Free LAB 02/09/25 Logged 05:15 Lipid Panel LAB 02/09/25 Logged 05:15 Hemoglobin A1c LAB 02/09/25 Logged 05:15 Echo 2d Mode Cardiac US 02/09/25 Logged DOP 05:40 Visit Coding STANDARD RES Billing Provider: LOC BALL MD Date of Service if different f: Feb 08, 2025 Common Visit Codes: 62892-[id number] INP/OBS CARE (HIGH) Secondary Visit Codes: 99444-EOVSEKOU CARE PLAN 30 MINUTES REGGIE BARON RESIDENT Feb 09, 2025 05:45
[2025-02-09 06:01] LABS: Alanine Aminotransferase 38 U/L (7-40); Alkaline Phosphatase 68 U/L (46-116); Calcium 9.3 mg/dL (8.7-10.4)
[2025-02-09 06:02] LABS: Albumin 4.2 g/dL (3.2-4.8); Anion Gap 8 (5-15); BUN/Creatinine Ratio 14.4 (10.0-20.0); Bilirubin, Total 1.1 mg/dL (0.2-1.0); Blood Urea Nitrogen 15 mg/dL (9-23); Carbon Dioxide 27 mmol/L (20-31); Chloride 105 mmol/L (98-107); Glucose 87 mg/dL (74-106); Magnesium 2.4 mg/dL (1.6-2.6); Potassium 4.2 mmol/L (3.5-5.1); Sodium 140 mmol/L (136-145); Total Protein 7.0 g/dL (5.7-8.2)
--- NOTE | 2025-02-09 06:24 | ECG ---
[facility] Test Date: 2025-02-08 Test Time: 12:47:50 Pat Name: DOMINGO RIVER Department: Room: [address] [place] [address] Gender: M Product Handler: AVERY : 1945 Requested By: REY HUDSON Order Number: [id number] Reading MD: Mack Rodriguez Measurements Intervals [place] Rate: 67 P: 19 VA: 167 QRS: 20 QRSD: 95 T: -7 QT: 379 QTc: 400 Interpretive Statements Sinus rhythm Borderline T abnormalities, inferior leads Electronically Signed On 02-11-2025 10:29:58 PST by Mack Rodriguez Please click the below link to view image of tracing.
[2025-02-09 07:30] VITALS: PULSE 61
[2025-02-09 07:48] LABS: Triglycerides 105 mg/dL (< 150)
[2025-02-09 07:50] LABS: Cholesterol 158 mg/dL (< 200); HDL Cholesterol 50 mg/dL (40-59)
[2025-02-09 08:55] VITALS: BP 104/71; PULSE 61; RESP 18; TEMP 97.8; O2SAT 96
[2025-02-09] MEDS: ENOXAPARIN SOD 40 MG/0.4 ML SYRINGE SC SCH (10:51)
[2025-02-09] MEDS: PANTOPRAZOLE 40 MG/10 ML VIAL INJ IV SCH (10:52)
[2025-02-09] MEDS ORDERED: PANT40TA2 PO (11:50)
--- NOTE | 2025-02-09 11:53 | DVHDS2 ---
Discharge Summary Date of Admission Feb 09, 2025 at 00:16 Date of Discharge: Feb 09, 2025 Labs/Diagnostic Data: Laboratory Results Test 02/09/25 08:03 02/09/25 04:51 02/08/25 16:00 02/08/25 14:06 White Blood Count 8.0 10^3/uL (4.4-10.8) Red Blood Count 5.14 10^6/uL (4.5-5.90) Hemoglobin 16.0 g/dL (13.5-17.5) Hematocrit 47.8 % (41.0-53.0) Mean Corpuscular Volume 93.1 fL (80.0-100.0) Mean Corpuscular Hemoglobin 31.2 pg (28.0-32.0) Mean Corpuscular Hemoglobin Concent 33.5 g/dL (32.0-36.0) Red Cell Distribution Width 12.8 % (11.8-14.3) Platelet Count 223 10^3/uL (140-450) Mean Platelet Volume 7.4 fL (6.9-10.8) Neutrophils (%) (Auto) 58.9 % (37.0-80.0) Lymphocytes (%) (Auto) 26.2 % (10.0-50.0) Monocytes (%) (Auto) 8.8 % (0.0-12.0) Eosinophils (%) (Auto) 5.7 % (0.0-7.0) Basophils (%) (Auto) 0.4 % (0.0-2.0) Neutrophils # (Auto) 4.7 10 ^3/uL (1.6-8.6) Lymphocytes # (Auto) 2.1 10 ^3/uL (0.4-5.4) Monocytes # (Auto) 0.7 10 ^3/uL (0-1.3) Eosinophils # (Auto) 0.5 10 ^3/uL (0-0.8) Basophils # (Auto) 0 10 ^3/uL (0-0.2) Nucleated Red Blood Cells 0.1 % Sodium Level 140 mmol/L (136-145) Potassium Level 4.2 mmol/L (3.5-5.1) Chloride Level 105 mmol/L (98-107) Carbon Dioxide Level 27 mmol/L (20-31) Anion Gap 8 (5-15) Blood Urea Nitrogen 15 mg/dL (9-23) Creatinine 1.04 mg/dL (0.700-1.30) Glomerular Filtration Rate Calc 72 mL/min (>90) BUN/Creatinine Ratio 14.4 (10.0-20.0) Serum Glucose 87 mg/dL (74-106) Hemoglobin A1c 5.7 % A1C (<5.7) Calcium Level 9.3 mg/dL (8.7-10.4) Magnesium Level 2.4 mg/dL (1.6-2.6) Total Bilirubin 1.1 mg/dL (0.2-1.0) Aspartate Amino Transferase (AST) 39 U/L (13-40) Alanine Aminotransferase (ALT) 38 U/L (7-40) Alkaline Phosphatase 68 U/L (46-116) Total Protein 7.0 g/dL (5.7-8.2) Albumin 4.2 g/dL (3.2-4.8) Triglycerides Level 105 mg/dL (< 150) Cholesterol Level 158 mg/dL (< 200) LDL Cholesterol 102 mg/dL (< 100) HDL Cholesterol 50 mg/dL (40-59) Thyroid Stimulating Hormone (TSH) 0.70 uIU/mL (0.55-4.78) Urine Color Yellow (Yellow) Urine Clarity Clear (Clear) Urine pH 5.5 (5.0-9.0) Urine Specific [place] 1.018 (1.001-1.035) Urine Protein Negative (Negative) Urine Ketones 1+ (Negative) Urine Blood Negative /uL (Negative) Urine Nitrite Negative (Negative) Urine Bilirubin Negative (Negative) Urine Urobilinogen Normal mg/dL (Negative) Urine Leukocyte Esterase Negative /uL (Negative) Urine RBC 1 /hpf (0 - 3) Urine Microscopic WBC /HPF (0-3) Urine Squamous Epithelial Cells None seen /hpf (<5) Urine Bacteria Few /hpf (None Seen) Urine Mucus Few (None Seen) Urine Glucose Normal mg/dL (Normal) Troponin I High Sensitivity 3 ng/L (</=54) Other Laboratory Tests 02/09/25 04:51 Brief Hx & Hospital Course: Final diagnoses: Syncope most likely vasovagal GERD Mixed hyperlipidemia BPH 79-year-old male came with a syncopal episode that happened after he says he ate a large amount of pork and that irritated his stomach because of his GERD He feels better now For the last 2 days now he is asymptomatic with no dizziness no lightheadedness Workup here is negative including CT scan of the head and chest x-ray Labs are normal He is asymptomatic now so he can go home Continue Protonix 40 mg daily He was educated about avoiding fried food and spicy food and caffeine Condition at Discharge: Stable Final Diagnosis/Problems List Syncope most likely vasovagal GERD Mixed hyperlipidemia BPH Discharge Disposition: Home SNF Discharge Will this Physician continue t: No Discharge Instruct/Medications Diet: Cardiac 2g Na,low cholest Diet comment: The patient was educated about cutting down on caffeine and fried food and spicy food Activity: No Restrictions, As Tolerated Follow Up/Referral: PCP as soon as possible Medications: Protonix 40 mg daily Resume the home medications Scheduled Atorvastatin Calcium (Atorvastatin Calcium), 10 MG PO DAILY, (Reported) Pantoprazole Sodium Sesquihydr (Protonix), 40 MG PO DAILY, (Reported) Pantoprazole Sodium Sesquihydr (Protonix), 40 MG PO DAILY Sucralfate (Carafate), 1 GM OR DAILY, (Reported) Tamsulosin Hcl (Tamsulosin Hcl), 0.4 MG PO DAILY, (Reported) Discharge Statement: "Patient was advised to return to the ER or call 911 if any headaches, dizziness, shortness of breath, chest pain, abdominal pain, bleeding, fevers, or worsening of medical condition. Patient was counseled about treatment plan, medications, possible side effects, patientverbalized understanding. All questions were answered to the best of my ability. This discharge took greater then 30 minutes in planning, reviewing documentation, counseling the patient, and discussing with other team members." ASSESSMENT ASSESSMENT Assessment Syncope most likely vasovagal GERD Mixed hyperlipidemia BPH Date of Service: Feb 09, 2025 Billing Provider: CAMILLA KAUR MD Common Visit Codes: 60535-TYH/OBS DISCH DAY >30min CAMILLA KAUR MD Feb 09, 2025 11:53
[2025-02-09 14:04] LABS: Amphetamine Screen, Urine Neg (NEGATIVE); Barbiturate Scree,Urine Neg (NEGATIVE); Benzodiazephine Screen, Urine Neg (NEGATIVE); Cannabinoid Screen, Urine Neg (NEGATIVE); Cocaine Screen, Urine Neg (NEGATIVE); Opiate Scree,Urine Neg (NEGATIVE); Phencyclidine Screen, Urine Neg (NEGATIVE)
[2025-02-09] MEDS ORDERED: TAMSULOSIN HYDROCHLORIDE 0.4 MG CAP PO SCH (18:00)
[2025-02-09] MEDS ORDERED: ATORVASTATIN 20 MG TAB PO SCH (22:00)
[2025-02-10 08:07] LABS: Prostate Specific Antigen 5.2 ng/mL (0.0-4.0)
== END 2025-02-09 12:05 | disposition home or self-care (01) | DRG 312 ==
LOC: ER 12:32 → OVERFLOW 02-09 00:16 → EDUNIT# 02-09 00:16
PROVIDERS: ADMIT Internal Medicine Geriatric Medicine; ATTEND Internal Medicine Geriatric Medicine
DX: R55 Syncope and collapse (principal); E78.2 Mixed hyperlipidemia; J98.11 Atelectasis; K21.9 Gastro-esophageal reflux disease without esophagitis; N40.0 Benign prostatic hyperplasia without lower urinary tract symptoms; Z79.899 Other long term (current) drug therapy
CPT/HCPCS: 36415; 70450; 71045; 80053; 80061; 80307; 81001; 83036; 83735; 84154; 84443; 84484; 85025; 93005; G0378; J2470